=== PATIENT | female | born 1960 | race Caucasian/White ===

== ENCOUNTER 2017-07-13 20:13 | Emergency (ER) | payer MEDICARE ==
[2017-07-13] MEDS ORDERED: NS 0.9% 1000 ML* 1,000 ML IV ONE ×2 (20:24→21:16)
[2017-07-13] MEDS ORDERED: Ondansetron INJ* 2 MG/ML VIAL IV ONE (20:24)
[2017-07-13 21:04] LABS: ABS Basophils 0.1 10^3/ul (0-0.2); ABS Eosinophils 0.1 10^3/ul (0-0.6); ABS Lymphocytes 3.7 10^3/ul (1.0-4.8); ABS Monocytes 0.7 10^3/ul (0-0.8); ABS Neutrophils 13.8 10^3/ul (1.5-7.7); ABS Nucleated RBC 0 10^3/ul; Eosinophil % 0.4 % (0-6); Hematocrit 40 % (35-47); Hemoglobin 13.5 g/dl (12.0-16.0); Lymphocyte % 20.2 % (25-47); Mean Corpuscular HGB Conc 34 g/dl (31-36); Mean Corpuscular Hemoglobin 29 pg (27-31); Mean Corpuscular Volume 86 fL (80-97); Mean Platelet Volume 10.4 um3 (7.4-10.4); Nucleated Red Blood Cells % 0; Platelet Count 190 10^3/ul (150-450); Red Blood Count 4.63 10^6/ul (4.0-5.4); Red Cell Distribution Width 13 % (10.5-15); White Blood Count 18.4 10^3/ul (3.5-10.8)
[2017-07-13 21:19] LABS: EGFR Non-African American 63.5 (>60)
[2017-07-13] MEDS ORDERED: Promethazine INJ(RESTRICTED)* 25 MG/ML 1 ML VIAL IV ONE (21:20)
[2017-07-13] MEDS ORDERED: Iodixanol* (CONTRAST) 320 MG/ML 100 ML SDV IV ONE (21:22)
--- NOTE | 2017-07-13 21:56 | RAD ---
INDICATION: Nausea and vomiting worsening for 2 days. Mid to upper back pain. Diabetic. COMPARISON: June 19, 2015 ultrasound. TECHNIQUE: Multidetector CT images were obtained from the lung bases to the ischial tuberosities with 94 mL Visipaque 320 IV and oral contrast. Multiplanar reformation. REPORT: Mild dependent atelectasis at the lung bases. Post cholecystectomy. Negative for biliary dilatation. 19.5 cm cephalocaudal liver with decreased density consistent with fatty infiltration. 1.3 cm water density cyst at the LEFT hepatic lobe. Negative for suspicious hepatic lesions. Unremarkable pancreas and spleen. Small hiatal hernia. No CT abnormality of the duodenum, jejunum, ileum, or appendix visualized along the RIGHT pelvic sidewall. Decompressed colon is remarkable for mild diverticulosis without findings of acute diverticulitis. Negative for ascites, free air, hernias. 1.6 cm RIGHT adrenal nodule is nonspecific based on density measurement on this contrast-enhanced CT. The lesion is low suspicion based on small size. Unremarkable LEFT adrenal gland. 2.5 cm simple cortical cyst lower pole cortex LEFT kidney. No suspicious renal lesions or hydronephrosis. No suspicious finding along the course of the nondilated ureters. Multiple pelvic phleboliths noted. Unremarkable partially distended urinary bladder. Unremarkable uterus and adnexal regions. Negative for lymphadenopathy. Mild atherosclerotic plaque of normal diameter abdominal aorta and iliac arteries. Physiologic distention of the IVC. Negative for suspicious osseous lesions. Diffuse degenerative arthropathy. At L4-L5 there is a large broad posterior disc extrusion with mild cephalad and caudal extension which along with facet joint osteoarthritis results in severe acquired central canal stenosis. IMPRESSION: 1. Enlarged liver with hepatosteatosis. 2. Post cholecystectomy. Negative for biliary dilatation. 3. Normal appendix documented. Mild colonic diverticulosis without findings of acute diverticulitis. 4. Nonspecific 1.6 cm RIGHT adrenal nodule. Reassessment of this probable benign finding with noncontrast CT in 3-6 months time for more accurate assessment of intralesional density and for stability in size compared with the current exam suggested. 5. Degenerative spondylosis and posterior element osteoarthritis with resulting severe acquired central canal stenosis at L4-L5.
[2017-07-13] MEDS ORDERED: PROCHLORPERAZINE INJ 5 MG/ML 2 ML VIAL IV ONE (22:00)
[2017-07-13 23:17] LABS: Urine Appearance Clear; Urine Blood 1+ (Negative); Urine Color Straw; Urine Ketones 2+ (Negative); Urine Protein Negative (Negative); Urine Specific Gravity 1.013 (1.010-1.030); Urine Urobilinogen Negative (Negative)
[2017-07-13] MEDS ORDERED: Magnesium Oxide TAB* 400 MG PO ONE (23:42)
[2017-07-13] MEDS ORDERED: O ndansetron ODT 4MG 2TAB PRPK 4 MG PAK PO ONE (23:53)
[2017-07-14 00:24] VITALS: BP 124/63
--- NOTE | 2017-07-14 00:33 | ED ---
Nausea/Vomiting/Diarrhea HPI - HPI Summary HPI Summary: Patient is a 56-year-old female who presents emergency department for vomiting, diarrhea and abdominal pain that started this morning. Denies that she had symptoms of fever, chills, upper respiratory infections, chest pain, shortness of breath, urinary symptoms. Denies recent antibiotic use, hospitalization or history of C. difficile. Patient is a diabetic. Symptoms are moderate in severity. No current modifying factors. No history of UC or Crohn's disease. - History of Current Complaint Chief Complaint: EDNauseaVomitDiarrh Stated Complaint: NAUSEA/VOMITTING Time Seen by Provider: 07/13/17 20:23 Hx Obtained From: Patient ?: No Onset/Duration: Sudden Onset Severity Initially: Moderate Severity Currently: Moderate Pain Intensity: 3 Pain Scale Used: 0-10 Numeric Location: Diffuse Character: Cramping Aggravating Factor(s): Nothing Alleviating Factor(s): Nothing Vomiting Frequency: Every 15-60 minutes Nausea/Vomiting Duration: 12-24 hours Vomiting Characteristics: Retching Diarrhea Presence: Yes - Liquidy, no blood Diarrhea Frequency: Daily Diarrhea Characteristics: Watery - Risk Factors Surgical Obstruction Risk Factor(s): Negative - Allergies/Home Medications Allergies/Adverse Reactions: Allergies Allergy/AdvReac Type Severity Reaction Status Date / Time NARCOTICS Allergy Nausea And Uncoded 07/28/15 06:40 Vomiting Home Medications: Home Medications Glimepiride 4 mg PO BID 07/13/17 [History Confirmed 07/13/17] Insulin GLARGINE(*) [Lantus(*)] 38 units SUBCUT BEDTIME 07/13/17 [History Confirmed 07/13/17] Irbesartan 75 mg PO DAILY 07/13/17 [History Confirmed 07/13/17] Omeprazole CAP* [Prilosec CAP* 20 MG] 40 mg PO BID 07/13/17 [History Confirmed 07/13/17] Pravastatin (NF) [Pravachol (NF)] 20 mg PO DAILY 07/13/17 [History Confirmed ] PMH/Surg Hx/FS Hx/Imm Hx Previously Healthy: Yes Endocrine/Hematology History: Reports: Hx Diabetes - TYPE 2 Cardiovascular History: Reports: Hx Hypercholesterolemia, Hx Hypertension - CONTROL WITH MEDS, Other Cardiovascular Problems/Disorders - CHOLESTEROL CONTROL WITH MEDS Respiratory History: Reports: Hx Chronic Bronchitis, Hx Chronic Obstructive Pulmonary Disease (COPD) GI History: Reports: Hx Gastroesophageal Reflux Disease - TUMS OCCASIONAL Musculoskeletal History: Reports: Hx Arthritis, Hx Fibromyalgia - NEYMAR PER HER MD Sensory History: Reports: Hx Contacts or Glasses - GLASSES Denies: Hx Hearing Aid Opthamlomology History: Reports: Hx Contacts or Glasses - GLASSES Neurological History: Reports: Other Neuro Impairments/Disorders - HX OF N/T/W FEET AND HANDS NOT CURRENT Psychiatric History: Reports: Hx Depression - CONTROL WITH MEDS - Surgical History Surgery Procedure, Year, and Place: 1995 - YEARS AGO LEFT KNEE X 2 (ONE ARTHROSCOPIC / ONE OPEN), [place], [place]. 2005 RIGHT FOOT BIG TOE PINNING, [place], [place]. DENTAL SURGERY Hx Anesthesia Reactions: No Infectious Disease History: No Infectious Disease History: Denies: Traveled Outside the [place] in Last 30 Days - Social History Occupation: Unemployed Lives: With Family Alcohol Use: Rare Substance Use Type: Reports: Marijuana Substance Use Comment - Amount & Last Used: LAST USE WAS A FEW WEEK AGO Smoking Status (MU): Light Every Day Tobacco Smoker Type: Cigarettes Amount Used/How Often: 2-3 CIGARETTES PER DAY Length of Time of Smoking/Using Tobacco: 30 YEARS Have You Smoked in the Last Year: Yes Review of Systems Constitutional: Negative Negative: Fever, Chills Eyes: Negative ENT: Negative Negative: Chest Pain Negative: Shortness Of Breath, Cough Positive: Abdominal Pain, Vomiting, Diarrhea, Nausea Genitourinary: Negative Negative: burning, dysuria, frequency Skin: Negative Neurological: Negative All Other Systems Reviewed And Are Negative: Yes Physical Exam Triage Information Reviewed: Yes Vital Signs On Initial Exam: Initial Vitals Temp Pulse Resp BP Pulse Ox 97.9 F 68 18 182/97 98 07/13/17 20:56 07/13/17 20:56 07/13/17 20:56 07/13/17 20:56 07/13/17 20:56 Vital Signs Reviewed: Yes Appearance: Positive: Ill-Appearing - Pt. lying in bed, retching., Pain Distress Skin: Positive: Warm, Dry Head/Face: Positive: Normal Head/Face Inspection Eyes: Positive: Normal, EOMI Respiratory/Lung Sounds: Positive: Clear to Auscultation, Breath Sounds Present Cardiovascular: Positive: Normal, RRR Abdomen Description: Positive: Other: - Abdomen is soft with mild diffuse tenderness. No rebound tenderness or guarding. Neurological: Positive: Normal, CN Intact II-III Psychiatric: Positive: Normal Diagnostics - Vital Signs Vital Signs Temp Pulse Resp BP Pulse Ox 07/14/17 00:23 98.0 F 71 16 124/63 98 07/13/17 22:05 98.4 F 71 15 121/74 98 07/13/17 22:00 84 177/98 93 07/13/17 21:53 81 178/96 93 07/13/17 21:47 96 100 07/13/17 20:56 97.9 F 68 18 182/97 98 - Laboratory Lab Results: Lab Results 07/13/17 07/13/17 07/13/17 Range/Units 20:22 20:22 22:59 WBC 18.4 H (3.5-10.8) 10^3/ul RBC 4.63 (4.0-5.4) 10^6/ul Hgb 13.5 (12.0-16.0) g/dl Hct 40 (35-47) % MCV 86 (80-97) fL MCH 29 (27-31) pg MCHC 34 (31-36) g/dl RDW 13 (10.5-15) % Plt Count 190 (150-450) 10^3/ul MPV 10.4 (7.4-10.4) um3 Neut % (Auto) 74.8 (38-83) % Lymph % (Auto) 20.2 L (25-47) % [place] % (Auto) 4.0 (0-7) % Eos % (Auto) 0.4 (0-6) % Baso % (Auto) 0.6 (0-2) % Absolute Neuts (auto) 13.8 H (1.5-7.7) 10^3/ul Absolute Lymphs (auto) 3.7 (1.0-4.8) 10^3/ul Absolute Monos (auto) 0.7 (0-0.8) 10^3/ul Absolute Eos (auto) 0.1 (0-0.6) 10^3/ul Absolute Basos (auto) 0.1 (0-0.2) 10^3/ul Absolute Nucleated RBC 0 10^3/ul Nucleated RBC % 0 Sodium 138 L (139-145) mmol/L Potassium 3.9 (3.5-5.0) mmol/L Chloride 103 (101-111) mmol/L Carbon Dioxide 19 L (22-32) mmol/L Anion Gap 16 H (2-11) mmol/L BUN 14 (6-24) mg/dL Creatinine 0.91 (0.51-0.95) mg/dL Est GFR ( Amer) 81.7 (>60) Est GFR (Non-Af Amer) 63.5 (>60) BUN/Creatinine Ratio 15.4 (8-20) Glucose 283 H (70-100) mg/dL Calcium 9.6 (8.6-10.3) mg/dL Magnesium 1.6 L (1.9-2.7) mg/dL Total Bilirubin 0.50 (0.2-1.0) mg/dL AST 24 (13-39) U/L ALT 25 (7-52) U/L Alkaline Phosphatase 62 (34-104) U/L Troponin I 0.00 (<0.04) ng/mL Total Protein 7.9 (6.4-8.9) g/dL Albumin 4.5 (3.2-5.2) g/dL Globulin 3.4 (2-4) g/dL Albumin/Globulin Ratio 1.3 (1-3) Urine Color Straw Urine Appearance Clear Urine pH 6.0 (5-9) Ur Specific [place] 1.013 (1.010-1.030) Urine Protein Negative (Negative) Urine Ketones 2+ A (Negative) Urine Blood 1+ A (Negative) Urine Nitrate Negative (Negative) Urine Bilirubin Negative (Negative) Urine Urobilinogen Negative (Negative) Ur Leukocyte Esterase Negative (Negative) Urine WBC (Auto) Trace(0-5/hpf) (Absent) Urine RBC (Auto) Trace(0-2/hpf) (Absent) Ur Squamous Epith Cells Present A (Absent) Urine Bacteria Absent (Absent) Urine Glucose 3+(>=500 mg/dl) A (Negative) Result Diagrams: 07/13/17 20:22 07/13/17 20:22 Lab Statement: Any lab studies that have been ordered have been reviewed, and results considered in the medical decision making process. Naus/Vom/Diarrhea Course/Dx - Course Course Of Treatment: Patient presenting to the ER for vomiting, diarrhea and abdominal pain. She is afebrile with stable vital signs. Oxygen saturation is 98% room air which is normal. Patient was surrounding IV fluids and given IV Zofran. Labs, EKG and CT scan were ordered. CBC shows a leukocytosis of 18, 000. CMP shows glucose of 283, CO2 19, anion gap 16, suspect from vomiting and dehydration. Normal renal function. Mag. low at 1.6. CT scan per radiology is negative for acute findings. ECG done at 2056 shows a sinus rhythm of 79 bpm, normal axis, no ST elevation or depression. Negative troponin. Pt. still feeling nauseous after zofran and was given Compazine with good improvement. She's had no further vomiting in the emergency department. States she's had a few small bowel movements but does not think she can give a stool sample at this time. Patient was given oral magnesium. 2L of NSS given. Suspect viral gastroenteritis. On re-examination patient is resting comfortably and her is now present. Results were discussed. Pt. and family feel comfortable going home tonight. Zofran was dispensed and rx sent in. Advised clear liquid diet x 48 hours. To increase fluids. To f.u with PCP on Sunday. To return to ER over the weekend for intractable vomiting or worsening symptoms. - Differential Dx/Diagnosis Condition At Discharge: Stable Discharge - Sign-Out/Discharge Documenting (check all that apply): Discharge - Discharge Plan Condition: Stable Disposition: HOME Prescriptions: Ondansetron [Zofran Odt] 4 mg PO Q6H #12 tab.rapdis Patient Education Materials: Dehydration (ED), Gastroenteritis (ED) Referrals: Jennifer Velazquez MD [Primary Care Provider] - Additional Instructions: Call PCP on Sunday for an appointment Zofran as directed Increase fluids Clear liquid diet x 48 hours Return to ER for uncontrollable vomiting or if symptoms change or worsen - Billing Disposition and Condition Condition: STABLE Disposition: HOME
== END 2017-07-14 00:23 | disposition home or self-care (01) ==
LOC: ED 20:13
DX: R11.2 Nausea with vomiting, unspecified (principal); R19.7 Diarrhea, unspecified; R10.817 Generalized abdominal tenderness; R16.0 Hepatomegaly, not elsewhere classified; N28.89 Other specified disorders of kidney and ureter; E11.9 Type 2 diabetes mellitus without complications; Z79.4 Long term (current) use of insulin; Z79.84 Long term (current) use of oral hypoglycemic drugs; I10 Essential (primary) hypertension; E78.00 Pure hypercholesterolemia, unspecified; J44.9 Chronic obstructive pulmonary disease, unspecified; K21.9 Gastro-esophageal reflux disease without esophagitis; M79.7 Fibromyalgia; F32.9 Major depressive disorder, single episode, unspecified; Z90.49 Acquired absence of other specified parts of digestive tract; Z88.5 Allergy status to narcotic agent; F17.210 Nicotine dependence, cigarettes, uncomplicated
CPT/HCPCS: 36415; 74177; 80053; 81003; 81015; 83735; 84484; 85025; 87086; 93005; 96361; 96374; 96375; 99283; A9270-GY; J0780; J2405; J2550; Q9967